=== PATIENT | male | born 1960 | race Caucasian/White ===

== ENCOUNTER 2025-05-15 02:04 | Emergency (ER) | payer MEDICAID ==
[~2025-05-15] VITALS: Ht 172.7 cm; Wt 74.8 kg
[2025-05-15] MEDS ORDERED: TAMS.4ER PO (02:22)
[2025-05-15] MEDS ORDERED: Lidocaine 2% Jelly Uro-Jet TOP ONE (03:15)
== END 2025-05-15 03:40 | disposition home or self-care (01) ==
LOC: ER 02:04
DX: T83.031A Leakage of indwelling urethral catheter, initial encounter (principal); Z79.899 Other long term (current) drug therapy
CPT/HCPCS: 99282